=== PATIENT | male | born 1930 | race Caucasian/White ===

== ENCOUNTER 2020-06-16 16:14 | Observation (INO) | payer MEDICARE, OTHER ==
[~2020-06-16] VITALS: Ht 182.9 cm; Wt 99.0 kg
--- NOTE | 2020-06-16 16:45 | NUR ---
NateN.Barbara. CALLED @[phone]
[2020-06-16] MEDS ORDERED: SODIUM CHLORIDE 0.9% 1,000 ML IV ONE (17:00)
[2020-06-16] MEDS ORDERED: CLINDAMYCIN PMX 300MG/50ML 50 ML IV ONE (17:00)
[2020-06-16] MEDS ORDERED: SODIUM CHLORIDE FLUSH 10ML SYR IVF ONE (17:00)
--- NOTE | 2020-06-16 17:00 | NUR ---
PRECEPTOR NOTE: SAT PT UP IN BED, GAVE SOUR APPLE CANDY PER MD REQUEST DUE TO SWOLLEN GLAND. PT TOLERATED WELL
[2020-06-16 17:27] LABS: ALBUMIN 2.1 g/dL (3.4-5.0); ANION GAP 6 mmol/L (5-15); CALCIUM 8.3 mg/dL (8.5-10.1); CHLORIDE 100 mmol/L (98-107); CREATININE 0.77 mg/dL (0.7-1.3)
[2020-06-16] MEDS ORDERED: ENALAPRILAT 1.25 MG/ML, 2ML IVPush PRN (17:30)
[2020-06-16] MEDS ORDERED: ONDANSETRON 2MG/ML, 2ML IVPush PRN (17:30)
[2020-06-16] MEDS ORDERED: MELATONIN 5 MG TABLET PO PRN (17:30)
[2020-06-16] MEDS ORDERED: DOCUSATE 100 MG CAPSULE PO PRN (17:30)
[2020-06-16] MEDS ORDERED: ACETAMINOPHEN 325 MG TABLET PO PRN (17:30)
[2020-06-16] MEDS ORDERED: ONDANSETRON ODT 4 MG PO PRN (17:30)
[2020-06-16 17:57] LABS: MEAN CORPUSCULAR HEMOGLOBIN 34.4 pg (27.5-34.5); MEAN CORPUSCULAR HGB CONC 34.1 g/dL (33.2-36.2); MEAN PLATELET VOLUME 9.4 fL (7.4-10.4); PLATELET COUNT 108 x10^3/uL (130-400); RED BLOOD COUNT 3.25 x10^6/uL (4.38-5.82); RED CELL DISTRIBUTION WIDTH 16.7 % (9.4-14.8)
[2020-06-16 17:58] LABS: MD YES
[2020-06-16 18:37] LABS: BAND#(MANUAL) 1.31 x10^3/uL; BANDS%(MANUAL) 9 % (0-7); LYMPH#(MANUAL) 0.29 x10^3/uL (1-3.4); LYMPHS% (MANUAL) 2 % (22-44); MONOS#(MANUAL) 0.44 x10^3/uL (0.3-2.7); MONOS% (MANUAL) 3 % (2-9); SEG#(MANUAL) 12.56 x10^3/uL (1.8-6.8); SEGS% (MANUAL) 86 % (42-75)
[2020-06-16 18:38] LABS: ANISOCYTOSIS 1+
[2020-06-16 18:40] LABS: <PLATELET ESTIMATE> DECREASED; LARGE PLATELETS 1+; TOXIC GRAN 1+
[2020-06-16] MEDS: CLINDAMYCIN PMX 600MG/50ML 50 ML IV SCH (18:49)
--- NOTE | 2020-06-16 19:00 | NUR ---
Report rec'd. Patient noted to have multiple brusies on arms. Patient stated that he bruisies easily. Patient resting at this time. VSS. Call light within reach
--- NOTE | 2020-06-16 20:55 | NUR ---
Patient transfered to hospital bed. VSS. Incontience care completed. Patient offers no complaints at this time. Bed in low position, call light within reach.
[2020-06-16] MEDS: SODIUM CHLORIDE 0.9% 1,000 ML IV SCH (21:40)
[2020-06-17 00:11] VITALS: BP 114/74
[2020-06-17] MEDS: CLINDAMYCIN PMX 600MG/50ML 50 ML IV SCH (02:30)
[2020-06-17 06:11] LABS: BASOPHILS % (AUTO) 0 % (0-1); EOSINOPHILS % (AUTO) 0 % (1-7); LYMPHOCYTES % (AUTO) 3 % (22-44); MEAN CORPUSCULAR HEMOGLOBIN 34.8 pg (27.5-34.5); MEAN CORPUSCULAR HGB CONC 34.8 g/dL (33.2-36.2); MEAN PLATELET VOLUME 9.2 fL (7.4-10.4); MONOCYTES % (AUTO) 5 % (2-9); NEUTROPHILS % (AUTO) 91 % (42-75); PLATELET COUNT 94 x10^3/uL (130-400); RED BLOOD COUNT 2.96 x10^6/uL (4.38-5.82); RED CELL DISTRIBUTION WIDTH 16.8 % (9.4-14.8)
[2020-06-17 06:13] LABS: ANION GAP 5 mmol/L (5-15); CALCIUM 8.3 mg/dL (8.5-10.1); CHLORIDE 100 mmol/L (98-107)
[2020-06-17 06:15] LABS: CREATININE 0.81 mg/dL (0.7-1.3)
[2020-06-17 06:51] LABS: MD SCAN
[2020-06-17 07:48] VITALS: BP 119/76
[2020-06-17] MEDS: SODIUM CHLORIDE 0.9% 1,000 ML IV SCH (11:20)
[2020-06-17] MEDS: [UNRECOGNIZED DRUG - OTHER] PO SCH ×3 (12:27→17:56)
[2020-06-17 13:40] VITALS: BP 126/68
[2020-06-17] MEDS ORDERED: PILO5TAB13 PO (14:30)
[2020-06-17] MEDS ORDERED: CLIN300C9 PO (14:30)
[2020-06-17] MEDS ORDERED: CLINDAMYCIN 300 MG CAPSULE PO SCH (16:00)
== END 2020-06-17 18:58 | disposition home or self-care (01) ==
LOC: ED 17:14 → SUATTDRO 17:24 → EDIP 17:37 → INTOOBSV 17:37 → 4NE 23:32
PROVIDERS: ADMIT Family Medicine; ATTEND Hospitalist
DX: K11.20 Sialoadenitis, unspecified (principal); F03.90 Unspecified dementia, unspecified severity, without behavioral disturbance, psychotic disturbance, mood disturbance, and anxiety; I25.2 Old myocardial infarction; I10 Essential (primary) hypertension; Z88.0 Allergy status to penicillin; Z86.73 Personal history of transient ischemic attack (TIA), and cerebral infarction without residual deficits; Z79.899 Other long term (current) drug therapy
CPT/HCPCS: 36415; 80048; 82040; 85025; 93005; 96361; 96365; 96366; 99284; G0378; J7030